=== PATIENT | male | born 1995 | race Caucasian/White ===

== ENCOUNTER 2017-07-17 17:47 | Emergency (ER) | payer OTHER ==
[~2017-07-17] VITALS: Ht 172.7 cm; Wt 64.9 kg
[2017-07-17 17:58] VITALS: BP 114/63
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
--- NOTE | 2017-07-17 19:06 | NUR ---
GAVE REPORT TO POPEYE MENDOZA
[2017-07-17] MEDS ORDERED: PENICILLIN G BENZATHINE L-A 2.4 MU/4 ML SYR IM ONE (19:45)
--- NOTE | 2017-07-17 20:25 | NUR ---
Patient discharged with v/s stable. Written and verbal after care instructions given and explained. Patient alert, oriented and verbalized understanding of instructions. Ambulatory with steady gait. All questions addressed prior to discharge. ID band removed. Patient advised to follow up with PMD. Rx of BACTITRACIN OINT given. Patient educated on indication of medication including possible reaction and side effects. Opportunity to ask questions provided and answered.
[2017-07-17 20:30] VITALS: BP 130/78
--- NOTE | 2017-07-18 11:08 | NUR ---
Called patient with no answer and left a voicemail to return the call at his earliest convienence.
--- NOTE | 2017-07-18 16:15 | NUR ---
Pt returned phone call, pt was updated about his results. Pt advised to follow up with PMD and request HIV screening per Dr. Morgan recommondation.
== END 2017-07-17 20:25 | disposition home or self-care (01) ==
LOC: MED 17:47
DX: B34.9 Viral infection, unspecified (principal)
CPT/HCPCS: 36415; 86592; 96372; 99284; J0561

== ENCOUNTER 2017-07-23 10:03 | Emergency (ER) | payer OTHER ==
[~2017-07-23] VITALS: Ht 170.2 cm; Wt 65.8 kg
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
[2017-07-23 10:09] VITALS: BP 142/92
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
[2017-07-23] MEDS ORDERED: ceFAZolin 1,000 MG VIAL IM ONE (10:10)
[2017-07-23] MEDS ORDERED: LIDOCAINE/EPI 1% 1:100000 20 ML VIAL INJ ONE ×2 (10:13→10:30)
[2017-07-23] MEDS ORDERED: LIDOCAINE MPF 1% - **ER/OR** 0 ML ONE (10:14)
--- NOTE | 2017-07-23 10:16 | NUR ---
AT BEDSIDE EVALUATING PT. WOUND HAS BEEN CLEANSED AND CHEST X RAY OREDED.
--- NOTE | 2017-07-23 10:20 | NUR ---
DR LUGO PUT 4 SUTURES IN PT CHEST. PT TOLERATED PROCEDURE WELL STATED 5/10 PAIN
--- NOTE | 2017-07-23 10:25 | NUR ---
INSPIARTORY AND EXPIRATORY CHEST X RAY IN PROGRESS AT BEDSIDE TO R/O PN
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
[2017-07-23 11:47] VITALS: BP 150/94
--- NOTE | 2017-07-23 11:50 | NUR ---
Recontacted [place] [employer] dispatch to advise the responding officers that the patient has been discharged.
== END 2017-07-23 11:46 | disposition home or self-care (01) ==
LOC: MED 10:03
DX: S21.111A Laceration without foreign body of right front wall of thorax without penetration into thoracic cavity, initial encounter (principal); F17.200 Nicotine dependence, unspecified, uncomplicated; W17.89XA Other fall from one level to another, initial encounter; Y93.89 Activity, other specified; Y92.89 Other specified places as the place of occurrence of the external cause; Y99.8 Other external cause status
CPT/HCPCS: 12001; 71045; 90471; 90715; 96372; 99284; J0690; J2001; Q0092

== ENCOUNTER 2017-07-24 | Emergency (ER) | payer OTHER ==
[~2017-07-24] VITALS: Ht 170.2 cm; Wt 77.1 kg
[2017-07-24 00:04] VITALS: BP 134/94
[2017-07-24] MEDS ORDERED: MORPHINE SULFATE 2 MG/ML SYR IVP ONE (00:10)
[2017-07-24] MEDS ORDERED: ONDANSETRON 4 MG/2 ML VIAL IVP ONE (00:10)
[2017-07-24] MEDS ORDERED: MORPHINE SULFATE 4 MG/ML SYR ONE (00:20)
[2017-07-24] MEDS ORDERED: ceFAZolin 1,000 MG VIAL ONE (00:20)
[2017-07-24 00:30] LABS: BASOPHILS # (AUTO) 0.1 K/uL (0.00-0.22); BASOPHILS % (AUTO) 0.4 % (0.0-2.0); EOSINOPHILS # (AUTO) 0.2 K/uL (0-0.4); EOSINOPHILS % (AUTO) 1.3 % (0.0-4.0); HEMATOCRIT 39.7 % (36-52); HEMOGLOBIN 13.5 g/dL (12.0-18.0); LYMPHOCYTES # (AUTO) 2.4 K/uL (2.0-11.5); LYMPHOCYTES % (AUTO) 18.3 % (20.5-51.1); MEAN CORPUSCULAR HEMOGLOBIN 30 pg (27-31); MEAN CORPUSCULAR HGB CONC 34 g/dL (33-37); MEAN CORPUSCULAR VOLUME 87.3 fL (80-94); MONOCYTES % (AUTO) 7.4 % (1.7-9.3); NEUTROPHILS # (AUTO) 9.6 K/uL (1.8-7.7); NEUTROPHILS % (AUTO) 72.6 % (42.2-75.2); PLATELET COUNT (AUTO) 308 K/uL (140-450); RED BLOOD CELL COUNT(AUTO) 4.55 MIL/uL (4.20-6.10); RED CELL DISTRIBUTION WIDTH 13.7 % (11.6-13.7); WHITE BLOOD COUNT (AUTO) 13.2 K/uL (4.5-11.0)
[2017-07-24 00:40] LABS: ANION GAP 15.8 (8-16); CARBON DIOXIDE 26.1 mmol/L (21-32); CREATININE 0.9 mg/dL (0.7-1.3); POTASSIUM 3.9 mmol/L (3.5-5.1)
[2017-07-24 00:46] LABS: ALBUMIN 3.8 g/dL (3.4-5.0); TOTAL BILIRUBIN 0.8 mg/dL (0.0-1.0)
[2017-07-24 00:50] LABS: PROTHROMBIN TIME 10.8 secs (10.8-13.4)
[2017-07-24] MEDS ORDERED: MORPHINE SULFATE 4 MG/ML SYR IVP ONE ×2 (01:05→03:45)
[2017-07-24 03:52] VITALS: BP 130/78
== END 2017-07-24 03:53 | disposition short-term general hospital (02) ==
LOC: MED
DX: S92.001B Unspecified fracture of right calcaneus, initial encounter for open fracture (principal); W34.09XA Accidental discharge from other specified firearms, initial encounter; Y93.89 Activity, other specified; Y92.89 Other specified places as the place of occurrence of the external cause; Y99.8 Other external cause status
CPT/HCPCS: 29515; 36415; 71045; 73590; 73630; 73700; 80053; 83880; 85025; 85610; 85730; 96365; 96375; 96376; 99285; J0690; J2270; J2405; J7060; Q0092

== ENCOUNTER 2017-10-18 20:40 | Emergency (ER) | payer OTHER ==
[~2017-10-18] VITALS: Ht 172.7 cm; Wt 86.2 kg
[2017-10-18 20:42] VITALS: BP 142/78
--- NOTE | 2017-10-18 20:45 | NUR ---
TO BED # 1 AMBULATORY, REPORT GIVEN TO DEAN MENDOZA.
--- NOTE | 2017-10-18 21:00 | NUR ---
PT DENIES N/V/D; PT C/O MULTIPLE LACERATIONS TO BILAT HANDS S/P BREAKING GLASS, PAIN IS 9/10 SHARP. HANDS STILL ACTIVELY BLEEDING. PINK/WARM/DRY; AAOX4, PERRL, WITH EVEN AND STEADY GAIT; LUNGS CLEAR BL, BREATHING UNLABORED; HR EVEN AND REGULAR, BL PERIPHERAL PULSES PRESENT; BS ACTIVE X4, NO TENDERNESS TO PALPATION, NO HEPATOSPLENOMEGALLY PALPATED, RESONANT TO PERCUSSION; PT DENIES ANY FEVER, CP, SOB, OR COUGH AT THIS TIME; VSS; PATIENT POSITIONED FOR COMFORT; HOB ELEVATED; BEDRAILS UP X2; BED DOWN.
[2017-10-18] MEDS ORDERED: LIDOCAINE 2% 1000 MG/50 ML VIAL INJ ONE (22:40)
--- NOTE | 2017-10-18 23:00 | NUR ---
DR. DALEY AT BEDSIDE PERFORMING LAC REPAIR
[2017-10-19] VITALS: BP 125/88
--- NOTE | 2017-10-19 | NUR ---
Patient discharged with v/s stable. Written and verbal after care instructions given and explained. Patient alert, oriented and verbalized understanding of instructions. Ambulatory with steady gait. All questions addressed prior to discharge. ID band removed. Patient advised to follow up with PMD. Patient educated on indication of medication including possible reaction and side effects. Opportunity to ask questions provided and answered.
== END 2017-10-18 23:58 | disposition home or self-care (01) ==
LOC: MED 20:40
DX: S61.412A Laceration without foreign body of left hand, initial encounter (principal); S61.214A Laceration without foreign body of right ring finger without damage to nail, initial encounter; J45.909 Unspecified asthma, uncomplicated; W45.8XXA Other foreign body or object entering through skin, initial encounter; Y93.89 Activity, other specified; Y99.8 Other external cause status; Y92.89 Other specified places as the place of occurrence of the external cause
CPT/HCPCS: 12004; 73130; 99284; J2001

== ENCOUNTER 2017-10-21 11:45 | Emergency (ER) | payer OTHER ==
[~2017-10-21] VITALS: Ht 175.3 cm; Wt 68.9 kg
[2017-10-21 11:49] VITALS: BP 126/84
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
[2017-10-21 12:18] VITALS: BP 126/84
== END 2017-10-21 12:18 | disposition home or self-care (01) ==
LOC: MED 11:45
DX: S61.412D Laceration without foreign body of left hand, subsequent encounter (principal); S61.216D Laceration without foreign body of right little finger without damage to nail, subsequent encounter; L40.9 Psoriasis, unspecified; J45.909 Unspecified asthma, uncomplicated; X58.XXXD Exposure to other specified factors, subsequent encounter; Z48.01 Encounter for change or removal of surgical wound dressing
CPT/HCPCS: 99283